=== PATIENT | male | born 1990 | race Caucasian/White ===

== ENCOUNTER 2019-08-10 19:25 | Emergency (ER) | payer SELFPAY ==
[~2019-08-10] VITALS: Ht 188 cm; Wt 70.3 kg
--- OUTSIDE RECORDS SUMMARY | 2019-08-10 19:27 | XMS REPORT ---
Author Author [facility] Address Unknown Phone Unavailable Care Team Providers Care Volunteer Recruiter Name Role Phone Unavailable Unavailable Payers Payer Name Policy Type Policy Number Effective Date Expiration Date Problems This patient has no known problems. Allergies, Adverse Reactions, Alerts Allergy Name Allergy Type Status Severity Reaction(s) Onset Date Inactive Date Treating Clinician Comments No Known Allergies DA Active U 2018-07-29 00:00:00 Medications This patient has no known medications.
[2019-08-10] MEDS ORDERED: CLINDAMYCIN HC150 MG PO (19:53)
[2019-08-10] MEDS ORDERED: NAPROSYN500 MG PO (19:53)
== END 2019-08-10 20:25 | disposition left against medical advice (07) ==
LOC: FSED 19:25
DX: K02.9 Dental caries, unspecified (principal)